=== PATIENT | male | born 1995 ===

== ENCOUNTER 2018-04-19 18:09 | Emergency (ER) | payer OTHER ==
[2018-04-19 18:22] VITALS: BP 147/88
--- NOTE | 2018-04-19 18:28 | UC ---
Throat Pain/Nasal Jakob HPI - HPI Summary HPI Summary: 22 yo male presents with sore throat since yesterday. He tells me that 2 days ago he noticed mild swelling to his left upper eyelid that has since resolved. Yesterday developed a scratchy throat and notice a left tonsillar lymph node enlarged. Has not taken anything OTC. Is able to eat and drink without difficulty. Denies fever, chills, headache, cough, SOB, chest pain, or rash. - History of Current Complaint Chief Complaint: UCRespiratory Stated Complaint: SWOLLEN LYMPH NODE, SORE THROAT Time Seen by Provider: 04/19/18 18:11 Hx Obtained From: Patient Onset/Duration: Sudden Onset Severity: Mild Pain Intensity: 2 Pain Scale Used: 0-10 Numeric - Allergies/Home Medications Allergies/Adverse Reactions: Allergies Allergy/AdvReac Type Severity Reaction Status Date / Time FUR ANIMALS Allergy RASH, Uncoded 04/19/18 18:22 SNEEZING Home Medications: Home Medications Cetirizine* [ZyrTEC 10 MG TAB*] 10 mg PO DAILY PRN 04/19/18 [History Confirmed 04/19/18] PMH/Surg Hx/FS Hx/Imm Hx - Additional Past Medical History Additional PMH: Allergies Previously Healthy: Yes - Surgical History Surgical History: None - Family History Known Family History: Positive: None - Social History Occupation: Employed Full-time, Student Lives: With Family Alcohol Use: Occasionally Substance Use Type: None Smoking Status (MU): Never Smoked Tobacco Review of Systems Constitutional: Negative Skin: Negative Eyes: Negative ENT: Sore Throat Respiratory: Negative Cardiovascular: Negative Gastrointestinal: Negative Neurovascular: Negative Neurological: Negative Psychological: Negative All Other Systems Reviewed And Are Negative: Yes Physical Exam - Summary Physical Exam Summary: GENERAL: NAD. WDWN. No pain distress. SKIN: No rashes, sores, lesions, or open wounds. HEENT: Head: AT/NC Eyes: EOM intact. Conjunctiva clear without inflammation or discharge. Ears: Hearing grossly normal. TMs intact, no bulging, erythema, or edema. Nose: Nasal mucosa pink and moist. NTTP maxillary and frontal sinus. Throat: Posterior oropharynx without exudates, erythema, or tonsillar enlargement. Uvula midline. NECK: Supple. Nontender. 2mm left tonsillar lymph node NTTP. CHEST: CTAB. No r/r/w. No accessory muscle use. Breathing comfortably and in no distress. CV: RRR. Without m/r/g. Pulses intact. Brisk cap refill. NEURO: Alert. CN II-XII grossly intact. PSYCH: Age appropriate behavior. Triage Information Reviewed: Yes Vital Signs: Initial Vital Signs Temp 98.2 F 04/19/18 18:18 Pulse 65 04/19/18 18:18 Resp 16 04/19/18 18:18 BP 147/88 04/19/18 18:18 Pulse Ox 100 04/19/18 18:18 Throat Pain/Nasal Course/Dx - Course Course Of Treatment: Exam is unremarkable. Suspect viral illness. Advised rest and tylenol/ibuprofen prn. F/u prn - Differential Dx/Diagnosis Provider Diagnoses: Pharyngitis Discharge - Sign-Out/Discharge Documenting (check all that apply): Discharge/Admit/Transfer - Discharge Plan Condition: Stable Disposition: HOME Patient Education Materials: Pharyngitis (ED) Referrals: No Primary Care Phys,NOPCP [Primary Care Provider] - Additional Instructions: If you develop a fever, shortness of breath, chest pain, new or worsening symptoms - please call your PCP or go to the ED. Your blood pressure was mildly elevated at todays visit. Please see your primary provider within 4 weeks for recheck and re-evaluation. 1) May take [id number] tylenol or ibuprofen for any discomfort - Billing Disposition and Condition Condition: STABLE Disposition: Home
== END 2018-04-19 18:52 | disposition home or self-care (01) ==
LOC: UCEAST 18:09
DX: J02.9 Acute pharyngitis, unspecified (principal)
CPT/HCPCS: 99202; G0463